=== PATIENT | female | born 1965 | race Caucasian/White ===

== ENCOUNTER → 2020-09-28 | Outpatient (CLI) | payer MEDICARE, OTHER | LOC: KOH-I 13:27 | DX: M79.671 Pain in right foot (principal) | CPT/HCPCS: 73630 ==

== ENCOUNTER → 2020-10-11 | Outpatient (CLI) | payer MEDICARE, OTHER | LOC: KOH-I 10-10 09:00 | DX: S93.431A Sprain of tibiofibular ligament of right ankle, initial encounter (principal); M79.674 Pain in right toe(s); M19.071 Primary osteoarthritis, right ankle and foot | CPT/HCPCS: 73721 ==

== ENCOUNTER → 2021-02-07 | Outpatient (CLI) | payer MEDICARE, OTHER ==
[~2021-02-07] MED LIST: ACYCLOVIR400 MG PO; ALPRAZOLAM0.5 MG PO; CYMBALTA30 MG PO; DITROPAN 5 MG TA5 MG PO; FEMRING1 EAC1 VG; FLOMAX 0.4 MG0.4 MG PO; GARLIC1 EAC1 PO; HYDROXYZINE HCL50 MG PO; IMITREX50 MG PO; LAMOTRIGINE200 MG PO; LEVOTHYROXINE75 MC1 PO; MYRBETRIQ50 MG PO; NEURONTIN300 MG PO; ONDANSETRON ODT4 MG PO; PERCOCET 5/325 T1 EA PO; PHENERGAN 25 MG25 M1 PO; PROCHLORPERAZINE5 MG PO; VITAMIN B12 PO; VITAMIN D3 PO; VITAMIN E PO; ZANAFLEX4 MG PO
[2021-02-07 13:09] LABS: HEMOGLOBIN 14.4 gm/dl (12.3-15.3); RED BLOOD COUNT 4.75 M/UL (4.00-5.10); WHITE BLOOD COUNT 8.8 K/UL (4.5-11.0)
== END ==
LOC: OPSV2 11:00
PROVIDERS: Podiatrist Foot & Ankle Surgery
DX: Z01.812 Encounter for preprocedural laboratory examination (principal)
CPT/HCPCS: 85027